=== PATIENT | male | born 1995 | race Caucasian/White ===

== ENCOUNTER 2017-05-19 20:59 | Emergency (ER) | payer OTHER ==
[~2017-05-19] VITALS: Ht 182.9 cm; Wt 81.8 kg
[2017-05-19 21:04] VITALS: TEMP 36.8; Ht 182.9 cm; Wt 81.8 kg
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
[2017-05-19] MEDS ORDERED: HALOPERIDOL LACTATE 5 MG/ML 1 ML VIAL IM STA ×2 (21:45→22:23)
[2017-05-19] MEDS ORDERED: LORAZEPAM 2 MG/ML 1 ML VIAL IM STA (21:45)
[2017-05-19] MEDS ORDERED: DiphenhydrAMINE HCL 50 MG/ML VIAL IM STA (22:08)
[2017-05-19] MEDS ORDERED: HALOPERIDOL LACTATE 5 MG/ML 1 ML VIAL IV STA (22:08)
[2017-05-19 22:48] LABS: BUN/CREATININE RATIO 13.9 (10-20); CALCIUM 9.6 mg/dl (8.5-10.1); CREATININE 1.42 mg/dl (0.60-1.40); POTASSIUM 4.1 mmol/L (3.5-5.1)
[2017-05-19 23:00] VITALS: O2SAT 95
--- NOTE | 2017-05-20 04:56 | EMERGENCY ROOM VISIT NOTE ---
ED Visit Note First contact with patient: 22:15 At 4:54 AM patient's resting in no distress no issues throughout emergency department evaluation and stay patient will be discharged to home with alcohol intoxication instructions Current/Historical Medications No Active Prescriptions or Reported Meds Allergies Coded Allergies: No Known Allergies (Unverified , 05/19/17) Vital Signs Date Time Temp Pulse Resp B/P (MAP) Pulse Ox O2 Delivery O2 Flow Rate FiO2 05/20/17 04:30 70 17 05/20/17 04:00 73 16 05/20/17 03:30 86 12 142/80 05/20/17 03:00 76 14 130/68 100 Room Air 05/20/17 02:30 75 15 115/54 100 Room Air 05/20/17 02:00 86 15 117/69 97 Room Air 05/20/17 01:30 80 15 129/63 100 Room Air 05/20/17 01:26 76 05/20/17 01:16 100 Nasal Cannula 2.0 05/20/17 01:00 78 14 132/63 97 Room Air 05/20/17 00:30 83 15 136/58 96 Room Air 05/20/17 00:00 87 14 110/54 95 Room Air 05/19/17 23:30 98 17 142/63 95 Room Air 05/19/17 23:00 85 Room Air 05/19/17 23:00 95 Nasal Cannula 2.0 05/19/17 23:00 94 16 131/55 96 Room Air 05/19/17 22:19 133/102 05/19/17 21:26 Room Air 05/19/17 21:26 Room Air 05/19/17 21:18 101 05/19/17 21:04 36.8 88 16 144/98 100 Room Air Laboratory Results 05/19/17 21:59 Test 05/19/17 21:59 Anion Gap 9.0 mmol/L (3-11) Est Creatinine Clear Calc Drug Dose 91.9 ml/min Estimated GFR () 82.4 Estimated GFR (Non- 71.1 BUN/Creatinine Ratio 13.9 (10-20) Calcium Level 9.6 mg/dl (8.5-10.1) Ethyl Alcohol mg/dL 298.5 mg/dl (0-3) Medications Administered Medications (Trade) Dose Ordered Sig/Hoang Route Start Time Stop Time Status Last Admin Dose Admin Haloperidol Lactate (Haldol Inj) 5 mg NOW STAT IM 05/19/17 21:45 05/19/17 21:48 DC 05/19/17 21:52 5 MG Lorazepam (Ativan Inj) 2 mg NOW STAT IM 05/19/17 21:45 05/19/17 21:48 DC 05/19/17 21:52 2 MG Diphenhydramine HCl (Benadryl Inj) 25 mg NOW STAT IM 05/19/17 22:08 05/19/17 22:09 DC 05/19/17 22:13 25 MG Haloperidol Lactate (Haldol Inj) 5 mg NOW STAT IM 05/19/17 22:23 05/19/17 22:25 DC 05/19/17 22:13 5 MG Departure Information Impression Primary Impression: Alcohol use with intoxication Additional Impression: Substance abuse Dispostion Still a Patient Prescriptions No Active Prescriptions or Reported Meds Referrals No Doctor, Assigned (PCP) Forms HOME CARE DOCUMENTATION FORM, IMPORTANT VISIT INFORMATION Patient Instructions [facility] Problem Qualifiers
[2017-05-20 05:07] VITALS: BP 163/93; PULSE 99; O2SAT 99
== END 2017-05-20 05:07 | disposition home or self-care (01) ==
LOC: EDBD 20:59 → C.EDB 21:04
DX: F10.129 Alcohol abuse with intoxication, unspecified (principal); F19.10 Other psychoactive substance abuse, uncomplicated; R45.1 Restlessness and agitation